=== PATIENT | female | born 1970 | race Caucasian/White ===

== ENCOUNTER → 2017-03-05 | Outpatient (CLI) | payer OTHER ==
[~2017-03-05] MED LIST: CELEXA10 MG PO; FLEXERIL10 M1 PO; IBUPROFEN800 MG PO; KLONOPIN0.5 MG PO; TYLENOL #3 PO
--- NOTE | ~2017-03-05 | CR7 ---
[facility] A Service of [facility] & [facility] RADIOLOGY TEXT RESULTS PATIENT: ELVIN WHALEN LOCATION: [facility] : [birth year] UNIT #: [id number] AGE: [address]: Rory Preciado MD SEX: F ORDER DR: [id number] [facility] [address] [place], [place] [address] [id number] O MR#: [id number] Acc #: [id number] NAME: ELVIN WHALEN : 1970 SEX: F STUDY DATE/TIME: 03/05/2017 10:04 UNIT: [facility] ROOM: STUDY DESCRIPTION: CR Abdomen Single AP View Attending Physician: Rory Preciado M.D. Referring Physician: Rory Preciado M.D. Ordering Physician: Rory Preciado M.D. Primary Care Physician: Thony Murray M.D. MEDICAL IMAGING REPORT This report is preliminary unless electronic signature is present EXAM AP abdomen INDICATIONS Right-sided abdominal pain for 1 year. History of kidney stones. COMPARISON STUDIES CT of the abdomen and pelvis from the same day. FINDINGS There are bilateral kidney stones. The largest on the right measures about 9 mm and the largest on the left measures about 8 mm. The right stone is in the mid-pole and the left stone is in the lower pole. IUD. Remainder of the study is unremarkable. IMPRESSION Bilateral renal stones as described. Dictated by... Joseluis Cardozo M.D. THIS IS AN ELECTRONICALLY VERIFIED REPORT Joseluis Cardozo M.D. at 03/06/2017 7:33 AM MEHREEN/willis TD: 03/05/2017 22:29 JOB #: [id number] MEDICAL IMAGING REPORT Page 1 of 1 COPY
--- NOTE | ~2017-03-05 | CT3 ---
[facility] A Service of [facility] & [facility] RADIOLOGY TEXT RESULTS PATIENT: ELVIN WHALEN [facility] : [birth year] UNIT #: [id number] AGE: [address]: Rory Preciado MD SEX: F ORDER DR: [id number] [facility] [address] [place], [place] [address] [id number] O MR#: [id number] Acc #: [id number] NAME: ELVIN WHALEN : 1970 SEX: F STUDY DATE/TIME: 03/05/2017 10:23 UNIT: [facility] ROOM: STUDY DESCRIPTION: CT Abd and Pelv WWo Cont Attending Physician: Rory Preciado M.D. Referring Physician: Rory Preciado M.D. Ordering Physician: Rory Preciado M.D. Primary Care Physician: Thony Murray M.D. MEDICAL IMAGING REPORT This report is preliminary unless electronic signature is present EXAM CT of the abdomen and pelvis without and with contrast on patient. INDICATIONS Bilateral renal stones. These were identified on a prior CT from December 11, 2015. She also reports right flank pain on and off for a year. TECHNIQUE Axial CT images were obtained from the dome of the diaphragm through symphysis pubis. Following this, the patient was administered intravenous contrast material and additional images were obtained from dome of the diaphragm through symphysis pubis. This CT exam was performed with one or more of the following radiation dose reduction techniques: automatic exposure control, adjustment of mA and/or kV according to patient size, and iterative reconstruction. FINDINGS Images through the lung bases are clear. Bilateral renal stones are again seen. I do not think these are really significantly changed when compared to the prior examination. No hydronephrosis is identified. No distal ureteral stones are seen. Patient's urinary bladder appears normal. Kidneys are otherwise unremarkable. The liver is within normal limits as are the spleen, stomach, proximal small bowel, adrenal glands, pancreas and gallbladder. No free fluid or adenopathy is seen within the abdomen. There is an umbilical hernia. Urinary bladder is within normal limits. Patient has an intrauterine device seen within the uterus appears. It appears to be appropriate in position. Patient does appear to have a Nabothian cyst involving the cervix. There is a right ovarian cyst, measuring up to 2.7 x 2.6 cm which is new when compared to the prior examination. The appendix is visualized and is within normal limits. A view of bony windows does not demonstrate STS. [facility] A Service of [facility] & [facility] & [facility] RADIOLOGY TEXT RESULTS PATIENT: ELVIN WHALEN LOCATION: [facility] : [birth year] UNIT #: [id number] AGE: [address]: Rory Preciado MD SEX: F ORDER DR: any aggressive osseous abnormalities. IMPRESSION 1. Patient is again noted have bilateral nonobstructing renal stones and grossly these are probably stable when compared to the prior examination, no hydronephrosis was identified on either side. No distal ureteral or bladder stones are seen. 2. The appendix is visualized and is within normal limits. 3. This patient does have a right ovarian cyst measuring up to 3.7 x 2.6 cm. This is probably a benign finding is 46-year-old woman, but the patient does endorse a history of right flank pain on and off which would be better assessed with a pelvic ultrasound. 4. An intrauterine device is identified and appears to be appropriately positioned within the uterus. Dictated by... Halle Segura M.D. THIS IS AN ELECTRONICALLY VERIFIED REPORT Halle Segura M.D. at 03/06/2017 4:58 PM AFF/ea TD: 03/05/2017 19:10 JOB #: [id number] MEDICAL IMAGING REPORT Page 1 of 1 COPY
== END | disposition home or self-care (01) ==
LOC: CCAT 09:43
DX: N20.0 Calculus of kidney (principal); N83.201 Unspecified ovarian cyst, right side; Z97.5 Presence of (intrauterine) contraceptive device
CPT/HCPCS: 74000; 74178; Q9967

== ENCOUNTER → 2017-05-21 | Day surgery (SDC) | payer OTHER ==
--- NOTE | ~2017-05-21 | OR ---
Unit #: [id number] #: [id number] Patient: ELVIN WHALEN [id number] [address] [place], [place] [address] [id number] O MR#: [id number] NAME: ELVIN WHALEN ROOM: Date of Procedure: 05/21/2017 Admission Date: 05/21/2017 Surgeon: Khalif Chavez M.D. : 1970 Attending Physician: Khalif Chavez M.D. Primary Care Physician: Thony Murray M.D. OPERATIVE REPORT PREOPERATIVE DIAGNOSIS Dyspepsia and right upper quadrant abdominal pain. PROCEDURES PERFORMED Upper gastrointestinal endoscopy. POSTOPERATIVE DIAGNOSES 1. Mild distal erosive esophagitis. 2. Mild prepyloric antral gastritis. This was primarily in the form of erythema. 3. Rest of the examination up to third part of duodenum was normal. Biopsies obtained from the antrum for CLOtest. RECOMMENDATIONS The patient will be started on pantoprazole 40 mg p.o. daily. She had an ultrasound of the right upper quadrant earlier today and the result is not available as yet and will be followed up later in the evening. The patient will be followed up in the office in 6 weeks' time SEDATION USED MAC. DESCRIPTION OF PROCEDURE Following detailed explanations of potential risks and complications of an upper endoscopy, namely perforation, bleeding, and complications related to sedation, the patient was brought to GI lab and laid in the left lateral decubitus position. Lubricated tip of the Olympus video upper endoscope was passed through the bite block into the proximal esophagus under direct vision. The entire esophageal mucosa was examined. The patient was noted to have grade 1 distal erosive esophagitis with erosions in Z-line and distal esophagus. The scope was then advanced in the gastric cavity and the latter was insufflated. Mucosa of the fundus, body, and antrum was examined and mild prepyloric antral erythema was noted indicating antral gastritis. Pylorus was intubated with visualization of the normal duodenal bulb and second and third part of the duodenum. Upon withdrawal and retroflexion, incisura, cardia, and greater curve examined and biopsy obtained from the antrum for CLOtest. The scope was then withdrawn in the distal esophagus. The entire esophageal mucosa was examined all the way up to pharynx. No additional findings noted. The patient tolerated the procedure without any postprocedure complications. Unit #: [id number] #: [id number] Patient: ELVIN WHALEN Dictated by... Abisai Durand/eva TD: 05/21/2017 13:22 JOB #: [id number] CC: Thony Murray M.D. OPERATIVE REPORT Page 1 of 1 X Khalif Chavez MD X PROCEDURE OPERATIVE NOTE
== END | disposition home or self-care (01) ==
LOC: COPS 08:00
DX: K22.10 Ulcer of esophagus without bleeding (principal); K29.70 Gastritis, unspecified, without bleeding; F17.210 Nicotine dependence, cigarettes, uncomplicated; Z87.442 Personal history of urinary calculi; Z88.2 Allergy status to sulfonamides; Z98.890 Other specified postprocedural states
CPT/HCPCS: 76705; 84703; 87077; J2250

== ENCOUNTER → 2017-05-21 | Outpatient (CLI) | payer OTHER ==
--- NOTE | ~2017-05-21 | US6 ---
[facility] A Service of [facility] & [facility] RADIOLOGY TEXT RESULTS PATIENT: ELVIN WHALEN LOCATION: [facility] : [birth year] UNIT #: [id number] AGE: [address]: Khalif Chavez MD SEX: F ORDER DR: [id number] [facility] [address] [place], [place] [address] [id number] O MR#: [id number] Acc #: [id number] NAME: ELVIN WHALEN : 1970 SEX: F STUDY DATE/TIME: 05/21/2017 8:08 UNIT: [facility] ROOM: STUDY DESCRIPTION: US Abdominal Limited Attending Physician: Khalif Chavez M.D. Referring Physician: Khalif Chavez M.D. Ordering Physician: Khalif Chavez M.D. Primary Care Physician: Khalif Chavez M.D. MEDICAL IMAGING REPORT This report is preliminary unless electronic signature is present EXAM Right upper quadrant ultrasound. INDICATION Right upper quadrant pain. Chronic nausea. This has been intermittent since June of 2016. TECHNIQUE Lynn-scale and color Doppler sonographic images were obtained through the right upper quadrant. FINDINGS The visualized portions of the pancreas appear unremarkable. The main portal vein is patent with hepatopetal flow. Hepatic echotexture is homogeneous. No focal hepatic lesions are seen, and there is no intra- or extrahepatic biliary dilatation. Gallbladder is normal. No stones or sludge are seen. There is no gallbladder wall thickening or pericholecystic fluid. Patient does have a nonobstructing stone identified in the right kidney. This measures about 1.5 cm in size. It was also seen on the prior CT from February 2017. No hydronephrosis is identified. There are no solid or cystic renal masses. IMPRESSION Nonobstructing right renal stone measuring up to about 1.5 cm in size. Remainder of the study is unremarkable. Dictated by... Halle Segura M.D. THIS IS AN ELECTRONICALLY VERIFIED REPORT Halle Segura M.D. at 05/23/2017 8:12 AM AFF/js [facility] A Service of [facility] & [facility] RADIOLOGY TEXT RESULTS PATIENT: ELVIN WHALEN LOCATION: [facility] : [birth year] UNIT #: [id number] AGE: [address]: Khalif Chavez MD SEX: F ORDER DR: TD: 05/21/2017 17:51 JOB #: [id number] MEDICAL IMAGING REPORT Page 1 of 1 COPY
== END | disposition home or self-care (01) ==
LOC: CWCC 07:38
DX: F17.200 Nicotine dependence, unspecified, uncomplicated (principal); N20.0 Calculus of kidney
CPT/HCPCS: 76705